=== PATIENT | male | born 1960 | race Caucasian/White ===

== ENCOUNTER 2017-09-08 13:32 | Emergency (ER) | END 2017-09-08 16:15 | disposition home or self-care (01) ==

== ENCOUNTER 2017-09-11 15:37 | Emergency (ER) | END 2017-09-11 16:31 | disposition left against medical advice (07) ==

== ENCOUNTER 2017-09-11 16:22 | Inpatient (IN) | END 2017-09-19 11:00 | disposition left against medical advice (07) | DRG 300 ==

== ENCOUNTER 2018-11-20 14:51 | Emergency (ER) | payer OTHER ==
[~2018-11-20] VITALS: Wt 100.0 kg
[~2018-11-20 14:51] MED LIST: ALLO300T2 PO; APIX5TAB PO; GEN15OI1 TOP; HYDR-3498 PO; HYDR-3601 PO; MUPI22OI2 TOP; PANT40TA4 PO
[2018-11-20 14:52] VITALS: BP 149/83; PULSE 80; RESP 18
[2018-11-20] MEDS ORDERED: CEPH-443 PO (16:28)
[2018-11-20] MEDS ORDERED: CLOT30CR24 TOP (16:28)
--- NOTE | 2018-11-20 20:28 | ERD ---
ER Documentation Chief Complaint Chief Complaint GENITAL RASH X 1 WEEK HPI Patient is a 58-year-old male with a past medical history of numerous nonhealing wounds to his bilateral lower extremities, bilateral chronic DVTs, hypertension, gout, BPH, presents the ER for concerns of a genital rash. Patient states he st arted riding his bike to lose weight. He states that he felt that his penis was rubbing against his workout suit. He states that he has generalized irritation to his penis. Patient denies any bleeding. Patient denies any pain. Denies any dysuria or penile discharge. Patient denies any fevers, chills, nausea, vomiting. Patient also states he does feel shortness of breath. Of note, patient states he has had this shortness of breath for the last 2 years. Patient denies any cough or hemoptysis. Patient does take Eliquis daily and he has been on this medication for the last 2 years. Patient states he also has an IVC filter. Patient denies any chest pain, left upper extremity pain, diaphoresis, or LOC. Patient denied recent air travel or recent surgeries. Patient goes to the wound care clinic for his chronic bilateral lower extremity wounds and his next appointment is on November 27, 2017. ROS All systems reviewed and are negative except as per history of present illness. Medications Home Meds Active Scripts Cephalexin* (Keflex*) 500 Mg Capsule, 500 MG PO TID for 7 Days, CAP Prov:SUZANNE SAM PA-C 11/20/18 Clotrimazole* (Clotrimazole* AF) 1% - 30 Gm Cream.gm., 1 APPLIC TOP BID for 7 Days, TUB Prov:SUZANNE SAM PA-C 11/20/18 Mupirocin* (Bactroban*) 2% -22 Gram Oint...g., 1 APPLIC TOP BID for 14 Days Prov:ÁLVARO SYED 09/17/17 Gentamicin Sulfate* (Gentamicin Sulfate* Oint) 0.1% - 15 Gm Oint, 1 APPLIC TOP TID for 14 Days Prov:ÁLVARO SYED 09/17/17 Pantoprazole* (Pantoprazole*) 40 Mg Tablet., 40 MG PO DAILY@06 for 30 Days Prov:ÁLVARO SYED 09/17/17 Hydrocodone Bit-Acetaminophen (Hydrocodone Bit-APAP) 5-325MG Tablet, 1 TAB PO Q6H PRN for MODERATE PAIN LEVEL 4-6 for 10 Days, TAB Prov:ÁLVARO SYED 09/17/17 Allopurinol* (Allopurinol*) 300 Mg Tablet, 300 MG PO DAILY for 30 Days, TAB Prov:ÁLVARO SYED 09/17/17 Apixaban* (Eliquis*) 5 Mg Tablet, 5 MG PO BID for LE DVT , #180 TAB Prov:CAROLIN JONES MD 06/16/16 Hydrocodone Bit-Acetaminophen* ([place]*) 5-325 Mg Tab, 1 TAB PO Q6 PRN for PAIN, #14 TAB Prov:ANDRES CORRAL MD 01/20/16 Allergies Allergies: Coded Allergies: No Known Allergy (Unverified , 09/08/17) PMhx/Soc History of Surgery: Yes (Ankle (1997) Various Right Knee SX, IVC filter ) Anesthesia Reaction: No Hx Neurological Disorder: Yes (Migraines) Hx Respiratory Disorders: No (Asthma) Hx Cardiac Disorders: Yes (HTN) Hx Psychiatric Problems: Yes (Depression) Hx Miscellaneous Medical Probl: No Hx Alcohol Use: No Hx Substance Use: No Hx Tobacco Use: No Smoking Status: Never smoker FmHx Family History: No diabetes Physical Exam Vitals Physical Exam GENERAL: Well-developed, well-nourished male. Appears in no acute distress. Began full sentences. HEAD: Normocephalic, atraumatic. EYES: Pupils are equally reactive bilaterally. EOMs grossly intact. No conjunctival erythema. ENT: Moist mucous membranes. No uvula deviation. No kissing tonsils. NECK: Supple. No meningismus. Normal range of motion of the neck. LUNG: Clear to auscultation bilaterally. Nonlabored breathing. No rhonchi, wheezing, rales or coarse breath sounds. HEART: Regular rate and rhythm. No murmurs, rubs or gallops. Equal pulses in bilateral upper extremities. MALE GENITALIA: PA Nico biswas, present during this portion of exam. Normal, circumcised penis without any lesions, masses or deformities. No penile discharge noted. No priapism. Normal scrotum without any masses, tenderness, swelling or erythema. Patient does have excoriated, erythematous in bilateral inguinal regions. Rashes consistent with intertrigo. EXTREMITIES: Equal pulses bilaterally. No peripheral clubbing, cyanosis or edema. No unilateral leg swelling. NEUROLOGIC: Alert and oriented. Moving all four extremities without any difficulty. Normal speech. Steady gait. SKIN: Chronic skin wounds noted on bilateral lower extremities. No streaking. No warmth or erythema. Procedures/MDM MEDICAL DECISION MAKING: Patient is a 58-year-old male with past medical history of numerous nonhealing wounds to his bilateral lower extremities, bilateral chronic DVTs- currently on Eliquis and has IVC filter, hypertension, gout, BPH who presents the ER for concerns of a rash on his penis after riding his bicycle 1 week ago. Vital signs were reviewed. Patient is afebrile. Patient was not hypoxic. Patient was not tachycardic. On exam, penis appears normal. No obvious rashes. No bleeding or discharge. Patient likely has a localized dermatitis. Patient did have erythema excoriated skin in his bilateral inguinal folds. Patient states he does have a history of intertrigo. Patient will be given clotrimazole cream to apply to this area. Patient was advised scratching the affected area. Patient will be given an a ntibiotic to prevent infection as patient states he is often scratching the affected areas. Low suspicion for necrotizing fasciitis, Hakeem's gangrene, balanitis. Of note, patient did report shortness of breath. He states he has had shortness of breath for the last 2 years. Patient denied any sudden worsening shortness of breath. Patient denied any cough or hemoptysis. Patient denies any fevers or chills. Patient's O2 sat was within normal limits. Patient's pulse was within normal limits. Patient denied any recent air travel, recent surgeries or chest pain. I did discuss this concern with my supervising physician Dr. Randall. He stated that there is no indication for further workup in the emergency department as patient has had shortness of breath for the last 2 years. Patient is taking Eliquis and does have an IVC filter. Patient is on both medication therapy and surgical therapy to prevent PE. Patient was advised to follow-up with his primary care physician for further management of symptoms. PRESCRIPTION: Keflex and clotrimazole DISCHARGE: At this time, patient is stable for discharge and outpatient management. I have instructed the patient to follow-up with his/her primary care physician in 1-2 days. I have discussed with the patient the possibility of needing to see a specialist for further workup and imaging studies if symptoms persist. I have instructed the patient to promptly return to the ER for any new or worsening symptoms including increased pain, chest pain, shortness of breath, fever, nausea, vomiting, weakness or LOC. The patient and/or family expressed understanding of and agreement with this plan. All questions were answered. Home care instructions were provided. Disclaimer: Inadvertent spelling and grammatical errors are likely due to EHR/dictation software use and do not reflect on the overall quality of patient care. Also, please note that the electronic time recorded on this note does not necessarily reflect the actual time of the patient encounter. Departure Diagnosis: Primary Impression: Unspecified skin changes Additional Impressions: Chronic shortness of breath Leg DVT (deep venous thromboembolism), chronic Laterality: bilateral Qualified Codes: I82.503 - Chronic embolism and thrombosis of unspecified deep veins of lower extremity, bilateral Intertrigo Condition: Fair Patient Instructions: Self-Care for Skin Rashes Referrals: [facility] YOU HAVE RECEIVED A MEDICAL SCREENING EXAM AND THE RESULTS INDICATE THAT YOU DO NOT HAVE A CONDITION THAT REQUIRES URGENT TREATMENT IN THE EMERGENCY DEPARTMENT. FURTHER EVALUATION AND TREATMENT OF YOUR CONDITION CAN WAIT UNTIL YOU ARE SEEN IN YOUR DOCTORS OFFICE WITHIN THE NEXT 1-2 DAYS. IT IS YOUR RESPONSIBILITY TO MAKE AN APPOINTMENT FOR FOLOW-UP CARE. IF YOU HAVE A PRIMARY DOCTOR --you should call your primary doctor and schedule an appointment IF YOU DO NOT HAVE A PRIMARY DOCTOR YOU CAN CALL OUR PHYSICIAN REFERRAL HOTLINE AT IF YOU CAN NOT AFFORD TO SEE A PHYSICIAN YOU CAN CHOSE FROM THE FOLLOWING [facility] [address] [facility] [address] [facility] [address] [facility] [address] [facility] [address] [facility] [facility]. [address] [facility] YOU HAVE RECEIVED A MEDICAL SCREENING EXAM AND THE RESULTS INDICATE THAT YOU DO NOT HAVE A CONDITION THAT REQUIRES URGENT TREATMENT IN THE EMERGENCY DEPARTMENT. FURTHER EVALUATION AND TREATMENT OF YOUR CONDITION CAN WAIT UNTIL YOU ARE SEEN IN YOUR DOCTORS OFFICE WITHIN THE NEXT 1-2 DAYS. IT IS YOUR RESPONSIBILITY TO MAKE AN APPOINTMENT FOR FOLOW-UP CARE. IF YOU HAVE A PRIMARY DOCTOR --you should call your primary doctor and schedule and appointment IF YOU DO NOT HAVE A PRIMARY DOCTOR YOU CAN CALL OUR PHYSICIAN REFERRAL HOTLINE AT . IF YOU CAN NOT AFFORD TO SEE A PHYSICIAN YOU CAN CHOSE FROM THE FOLLOWING [facility] INSTITUTIONS: [facility] [address] [place] [address] [facility] [address] [place] [address] [facility] [address] [place] [address] Additional Instructions: Follow-up with your primary care physician for further management of your chronic shortness of breath. Follow-up with wound clinic as scheduled for November 27. Call your primary care doctor TOMORROW for an appointment during the next 1-2 days.See the doctor sooner or return here if your condition worsens before your appointment time. SUZANNE SAM PA-C Nov 20, 2018 20:22
== END 2018-11-20 16:55 | disposition home or self-care (01) ==
LOC: FTE 14:51
DX: I82.503 Chronic embolism and thrombosis of unspecified deep veins of lower extremity, bilateral (principal); R23.9 Unspecified skin changes; R06.02 Shortness of breath; L30.4 Erythema intertrigo; I10 Essential (primary) hypertension; J45.909 Unspecified asthma, uncomplicated
CPT/HCPCS: 99283